=== PATIENT | male | born 1955 | race Caucasian/White ===

== ENCOUNTER 2019-08-26 09:12 | Emergency (ER) | payer OTHER, MEDICAID ==
--- NOTE | 2019-08-26 10:09 | ER Document Report ---
ED Medical Screen (RME) - General Chief Complaint: Hand Pain Stated Complaint: HAND PAIN/FOREIGN BODY Time Seen by Provider: 08/26/19 10:06 Primary Care Provider: LARS GALICIA PA-C [Primary Care Provider] - Follow up as needed Mode of Arrival: Ambulatory Information source: Patient Notes: 64-year-old male presented to ED for foreign body in the right hand. He states he was walking down the street cutting his hand on a railing when the sliver went into his hand. He states it went in very deep yesterday. He has tried multiple times to get it out and cannot get it out. He is alert oriented respirations regular nonlabored speaking in full sentences. His last tetanus shot was about a month ago. - Related Data Allergies/Adverse Reactions: No Known Allergies Allergy (Verified 08/26/19 10:03) Past Medical History - General Information source: Patient - Social History Cigarette use (# per day): No - Stop smoking 8 years ago Frequency of alcohol use: None Drug Abuse: None Lives with: Alone - Past Medical History Cardiac Medical History: Reports: Hx Atrial Fibrillation Endocrine Medical History: Reports: Hx Diabetes Mellitus Type 2 Musculoskeltal Medical History: Reports Hx Musculoskeletal Trauma Traumatic Medical History: Reports: Hx Fractures - Both feet arm Past Surgical History: Reports: Hx Orthopedic Surgery - ORIF both feet and arm, Other - Cardiac ablation - Immunizations Hx Diphtheria, Pertussis, Tetanus Vaccination: Yes - 2020 Physical Exam - Vital signs Vitals: Temp Pulse Resp BP Pulse Ox 97.7 F 57 L 18 135/68 H 98 08/26/19 09:28 08/26/19 09:28 08/26/19 09:28 08/26/19 09:28 08/26/19 09:28 Course - Vital Signs Vital signs: Temp Pulse Resp BP Pulse Ox 97.7 F 57 L 18 135/68 H 98 08/26/19 09:28 08/26/19 09:28 08/26/19 09:28 08/26/19 09:28 08/26/19 09:28 Doctor's Discharge - Discharge Referrals: LARS GALICIA PA-C [Primary Care Provider] - Follow up as needed
[2019-08-26] MEDS ORDERED: CEPHALEXIN 500 MG CAPSULE PO ONE (10:59)
[2019-08-26] MEDS ORDERED: LIDOCAINE 1%/EPINEPHRINE INJ 20 ML VIAL INJ ONE (10:59)
--- NOTE | 2019-08-26 12:38 | ER Document Report ---
HPI - HPI Patient complains to provider of: FB to hand Time Seen by Provider: 08/26/19 10:55 Onset: Yesterday Onset/Duration: Worse Quality of pain: Achy Pain Level: 1 Context: Patient states he was rubbing his hand on a deck yesterday and got a wood splinter in the palm of his hand. Patient attempted to remove the splinter himself unsuccessfully. Patient states area has become increasingly tender today. Patient's tetanus immunization is currently up-to-date. Exacerbated by: Movement Relieved by: Denies Similar symptoms previously: No Recently seen / treated by doctor: No - ROS ROS below otherwise negative: Yes Systems Reviewed and Negative: Yes All other systems reviewed and negative - CONSTITUTIONAL Constitutional: DENIES: Fever - MUSCULOSKELETAL Musculoskeletal: REPORTS: Extremity pain - DERM Skin Color: Normal Skin Problems: Puncture Wound Past Medical History - General Information source: Patient - Social History Smoking Status: Former Smoker Cigarette use (# per day): No - Stop smoking 8 years ago Frequency of alcohol use: None Drug Abuse: None Lives with: Alone Family History: Reviewed & Not Pertinent Patient has suicidal ideation: No Patient has homicidal ideation: No - Past Medical History Cardiac Medical History: Reports: Hx Atrial Fibrillation Endocrine Medical History: Reports: Hx Diabetes Mellitus Type 2 Musculoskeletal Medical History: Reports Hx Musculoskeletal Trauma Traumatic Medical History: Reports: Hx Fractures - Both feet arm Past Surgical History: Reports: Hx Orthopedic Surgery - ORIF both feet and arm, Other - Cardiac ablation - Immunizations Hx Diphtheria, Pertussis, Tetanus Vaccination: Yes - 2020 Vertical Provider Document - CONSTITUTIONAL Agree With Documented VS: Yes Exam Limitations: No Limitations General Appearance: WD/WN, No Apparent Distress - INFECTION CONTROL TRAVEL OUTSIDE OF THE [place] IN LAST 30 DAYS: No - HEENT HEENT: Atraumatic, Normocephalic - NECK Neck: Normal Inspection, Supple - RESPIRATORY Respiratory: Breath Sounds Normal, No Respiratory Distress - CARDIOVASCULAR Cardiovascular: Regular Rate, Regular Rhythm Pulses: Normal: Radial - MUSCULOSKELETAL/EXTREMETIES Musculoskeletal/Extremeties: MAEW - NEURO Level of Consciousness: Awake, Alert, Appropriate Motor/Sensory: No Motor Deficit - DERM Integumentary: Warm, Dry Notes: Puncture wound to palmar surface of right hand with mild erythema surrounding puncture wound. Course - Re-evaluation Re-evalutation: 08/26/19 12:34 Palm of hand was anesthetized with local 1% lidocaine with epinephrine. Scalpel was used to open the area overlying retained splinter. Forceps and 18-gauge needle were used to remove 1.5 cm wood splinter. Patient tolerated procedure well. Wound was then cleansed and irrigated. - Vital Signs Vital signs: Temp Pulse Resp BP Pulse Ox 97.7 F 57 L 18 135/68 H 98 08/26/19 09:28 08/26/19 09:28 08/26/19 09:28 08/26/19 09:28 08/26/19 09:28 Discharge - Discharge Clinical Impression: Splinter in skin, Subcutaneous foreign body removal Condition: Stable Disposition: HOME, SELF-CARE Instructions: Cephalexin ([facility]), Removal of Subcutaneous Foreign Object ([facility]) Additional Instructions: Return immediately for any new or worsening symptoms Followup with your primary care provider, call tomorrow to make a followup appointment Keep wound covered as it continues to heal, monitor daily for any signs of infection such as redness, streaks, purulent drainage or fever. Prescriptions: Cephalexin Monohydrate [Keflex 500 mg Capsule] 500 mg PO Q6H 5 Days #20 capsule Referrals: LARS GALICIA PA-C [NO LOCAL MD] - Follow up as needed
[2019-08-26 12:44] VITALS: BP 138/79
== END 2019-08-26 12:44 | disposition home or self-care (01) ==
LOC: ER 09:12
DX: S61.441A Puncture wound with foreign body of right hand, initial encounter (principal); X58.XXXA Exposure to other specified factors, initial encounter; Y93.89 Activity, other specified; E11.9 Type 2 diabetes mellitus without complications; Z87.891 Personal history of nicotine dependence
CPT/HCPCS: 99282; 10120; J3490